=== PATIENT | male | born 1965 | race Caucasian/White ===

== ENCOUNTER 2018-10-11 06:50 | Outpatient (CLI) | payer BC ==
[~2018-10-11 06:50] MED LIST: DOXY100C2 PO; HYDR-36 PO; LISI5TAB7 PO; METF100010 PO; METH750T2 PO; METH750T87 PO; NAPR-685 PO
[2018-10-11] MEDS ORDERED: MIDAZOLAM 1 MG/ML, 5ML ONE (07:50)
[2018-10-11] MEDS ORDERED: FLUMAZENIL 0.1 MG/1 ML, 5ML ONE (07:50)
[2018-10-11] MEDS ORDERED: FENTANYL PF 100 MCG/2ML ONE (07:51)
[2018-10-11] MEDS ORDERED: NALOXONE 1 MG/ML, 2ML ONE (07:51)
== END 2018-10-11 23:59 | disposition home or self-care (01) ==
LOC: RAD 06:50
PROVIDERS: ATTEND Family Medicine
DX: M48.02 Spinal stenosis, cervical region (principal); M50.221 Other cervical disc displacement at C4-C5 level; M50.223 Other cervical disc displacement at C6-C7 level; M75.82 Other shoulder lesions, left shoulder; M75.52 Bursitis of left shoulder; M19.012 Primary osteoarthritis, left shoulder; E11.9 Type 2 diabetes mellitus without complications
CPT/HCPCS: 72141; 73221; 99156; 99157; J2250; J3010; J2310